=== PATIENT | male | born 1965 | race Caucasian/White ===

== ENCOUNTER 2016-12-24 19:40 | Emergency (ER) | payer OTHER ==
[2016-12-24] MEDS ORDERED: SULFAMETH/TRIMETH DS 800/160 MG TABLET PO STA (20:50)
[2016-12-24] MEDS ORDERED: SULFAMETH/TRIMETH DS 800/160 MG TABLET PO ONE (21:04)
== END 2016-12-24 21:30 | disposition home or self-care (01) ==
DX: L02.413 Cutaneous abscess of right upper limb (principal); R03.0 Elevated blood-pressure reading, without diagnosis of hypertension; Z86.14 Personal history of Methicillin resistant Staphylococcus aureus infection
CPT/HCPCS: 10160; 87070; 87077; 87181; 87205; 99283; A9270

== ENCOUNTER 2017-01-21 14:16 | Emergency (ER) | payer OTHER ==
[2017-01-21] MEDS ORDERED: IBUPROFEN 800 MG TABLET PO STA (16:17)
[2017-01-21] MEDS ORDERED: oxyCODONE 5 MG TABLET PO STA (16:17)
[2017-01-21] MEDS ORDERED: CYCLOBENZAPRINE 10 MG TABLET PO STA (16:17)
--- NOTE | 2017-01-21 16:20 | ED Physician Documentation ---
PD HPI Fall - Stated complaint Stated Complaint: NECK PX/GLF - Chief complaint Chief Complaint: Back Pain - History obtained from History obtained from: Patient - History of Present Illness Mechanism of injury: Slipped Fall distance: Other (down 5 stairs) Timing - onset: How many days ago (2) Injury(ies) location: Neck Pain level max: 8 Pain level now: 8 Quality of pain: Pain, Throbbing, Aching Associated symptoms: Neck pain, Paresthesias (chronic numbness to the hands B. no changes). No: LOC, AMS, Amnesia, Seizures, Ear drainage, Nasal drainage, Weakness, Dyspnea, Nausea / vomiting Symptoms improve with: Rest Worsens with: Movement, Palpation Contributing factors: No: Anticoagulated, Intoxicated Similar symptoms before: Diagnosis (chronic neck pain) Recently seen: Not recently seen Review of Systems Constitutional: denies: Fever, Chills Skin: denies: Rash Musculoskeletal: denies: Back pain Neurologic: denies: Confused, Altered mental status, Headache PD PAST MEDICAL HISTORY - Past Medical History Past Medical History: Yes - Past Surgical History Past Surgical History: Yes Ortho: Spine surgery - Present Medications Home Medications: Ambulatory Orders Medication Instructions Recorded Confirmed Cyclobenzaprine [Flexeril] 10 mg PO TID PRN #20 tablet 01/21/17 Ibuprofen [Motrin] 800 mg PO Q8H PRN #30 tablet 01/21/17 oxyCODONE [Roxicodone] 5 mg PO Q4-6H PRN #7 tablet 01/21/17 - Allergies Allergies/Adverse Reactions: Allergies Allergy/AdvReac Type Severity Reaction Status Date / Time acetaminophen [From Tylenol] Allergy Emesis Verified 01/21/17 14:28 vancomycin Allergy Hives Verified 01/21/17 14:28 - Social History Does the pt smoke?: No Smoking Status: Never smoker Does the pt drink ETOH?: Yes - Immunizations Immunizations are current?: Yes PD ED PE NORMAL - Vitals Vital signs reviewed: Yes - General General: Alert and oriented X 3, No acute distress, Well developed/nourished - HEENT HEENT: Moist mucous membranes - Neck Neck: Supple, no meningeal sign, Other (Mild diffuse cervical spine tenderness palpation without stepoff or deformity. ) - Cardiac Cardiac: RRR - Respiratory Respiratory: No respiratory distress, Clear bilaterally - Back Back: No spinal TTP - Derm Derm: Warm and dry - Neuro Neuro: Alert and oriented X 3, No motor deficit, No sensory deficit - Psych Psych: Normal mood, Normal affect Results - Vitals Vitals: Vital Signs - 24 hr 01/21/17 01/21/17 14:24 17:21 Temperature 36.9 C 37.3 C Heart Rate 87 66 Respiratory 16 16 Rate Blood Pressure 128/87 H 112/69 O2 Saturation 98 98 Oxygen O2 Source Room air - Rads (name of study) Ct c-spine Radiology: Prelim report reviewed, EMP read contemporaneously, See rad report ( No acute cervical spine abnormalities. Anterior fusion, C3-C7, with loss of normal cervical lordosis. ) PD MEDICAL DECISION MAKING - ED course Complexity details: reviewed results, re-evaluated patient, considered differential, d/w patient ED course: Patient is a 51-year-old male with a history of anterior fusion at C3 through C7. He fell down several stairs 2 days ago. Increased pain today. No acute findings on cervical spine CT. No new neurological deficits. Has some chronic numbness in his fingers. Ambulating without difficulty. Will place on pain medication for home. Patient counseled regarding signs and symptoms for which I believe and urgent re-evaluation would be necessary. Patient with good understanding of and agreement to plan and is comfortable going home at this time This document was made in part using voice recognition software. While efforts are made to proofread this document, sound alike and grammatical errors may occur. Departure - Departure Disposition: 01 Home, Self Care Clinical Impression: Neck muscle strain Qualifiers: Encounter type: initial encounter Qualified Code(s): S16.1XXA - Strain of muscle, fascia and tendon at neck level, initial encounter Condition: Good Instructions: ED Sprain Strain Neck Follow-Up: your,doctor in 1 week [Other] Prescriptions: Cyclobenzaprine [Flexeril] 10 mg PO TID PRN #20 tablet PRN Reason: Spasms Ibuprofen [Motrin] 800 mg PO Q8H PRN #30 tablet PRN Reason: PAIN &/OR FEVER oxyCODONE [Roxicodone] 5 mg PO Q4-6H PRN #7 tablet PRN Reason: neck pain Comments: Return if you worsen. This should improve over the next few days. Do not drive or operate heavy machinery while taking Flexeril Forms: Activity restrictions Discharge Date/Time: 01/21/17 17:28
[2017-01-21] MEDS ORDERED: CYCLOBENZAPRINE 10 MG TABLET PO ONE (16:49)
[2017-01-21] MEDS ORDERED: oxyCODONE 5 MG TABLET ONE (16:49)
[2017-01-21] MEDS ORDERED: IBUPROFEN 800 MG TABLET PO ONE (16:50)
--- NOTE | 2017-01-21 17:19 | CT Preliminary Report ---
Exam: CT Cervical Spine W/O IMPRESSION: 1. No acute cervical spine abnormalities. 2. Anterior fusion, C3-C7, with loss of normal cervical lordosis. [facility] SITE ID: [id number]
--- NOTE | 2017-01-21 17:21 | CT Report ---
EXAM: CT CERVICAL SPINE WITHOUT CONTRAST DATE: 01/21/2017 03:00 PM HISTORY: Neck pain s/p fall. COMPARISONS: None. TECHNIQUE: Thin-section axial images were acquired of the cervical spine without contrast. Post-proce ssing: Coronal and sagittal reformats. Other: None. In accordance with CT protocol optimization, one or more of the following dose reduction techniques w ere utilized for this exam: automated exposure control, adjustment of mA and/or KV based on patient s ize, or use of iterative reconstructive technique. FINDINGS: Alignment: Loss of normal cervical lordosis. No scoliosis or spondylolisthesis. Bones: No fracture or bone lesion. Interspace Levels/Facets: Interbody disk devices, C3-C7. Anterior plate and screws, C4-C7. Otherwise disk heights preserved. No facet arthropathy. Other: The paravertebral and prevertebral soft tissues are normal. The lung apices are clear. IMPRESSION: 1. No acute cervical spine abnormalities. 2. Anterior fusion, C3-C7, with loss of normal cervical lordosis. [facility] Referring Provider Line: [phone] SITE ID: [id number]
[2017-01-21 17:23] VITALS: BP 112/69
== END 2017-01-21 17:28 | disposition home or self-care (01) ==
LOC: ED 14:16
DX: S16.1XXA Strain of muscle, fascia and tendon at neck level, initial encounter (principal); W10.9XXA Fall (on) (from) unspecified stairs and steps, initial encounter; Z98.1 Arthrodesis status
CPT/HCPCS: 72125; 99283; A9270